=== PATIENT | male | born 1940 | race Caucasian/White ===

== ENCOUNTER → 2017-12-27 | Outpatient (CLI) | payer MEDICARE, BC ==
--- NOTE | 2017-12-27 14:46 | XR ---
EXAMINATION TYPE: XR chest 2V DATE OF EXAM: 12/27/2017 COMPARISON: 01/14/2015 TECHNIQUE: PA and lateral views submitted. HISTORY: Preop FINDINGS: The lungs are clear and there is no pneumothorax, pleural effusion, or focal pneumonia. Partial jay ntration of the right hemidiaphragm has a stable appearance. Hypertrophic and degenerative change of the spine. Arthropathy of the shoulders. No overt failure. Atherosclerotic change aorta. Prominence t he right paratracheal stripe is stable from prior exam could be related the thyroid or ectatic vascul ature. IMPRESSION: 1. No acute process.
== END ==
LOC: RADXRYALE 14:23
PROVIDERS: ATTEND Family Medicine
DX: Z01.818 Encounter for other preprocedural examination (principal)
CPT/HCPCS: 71046

== ENCOUNTER 2019-05-04 13:48 | Emergency (ER) | payer MEDICARE, BC ==
[2019-05-04 13:53] VITALS: RESP 16; TEMP 97.8
[2019-05-04] MEDS ORDERED: SODIUM CHLORIDE 0.9% 500 ML 500 ML IV STA (14:11)
--- NOTE | 2019-05-04 14:21 | ED ---
Weakness HPI - General Chief complaint: Weakness Stated complaint: Dizzy Time Seen by Provider: 05/04/19 13:59 Source: patient, family Mode of arrival: wheelchair Limitations: no limitations - History of Present Illness Initial comments: 78-year-old male patient presents to the emergency department today for evaluation of generalized weakness. Patient states he woke this morning feeling generally run down. States he is also having feelings of lightheadedness. Patient states this occurs mostly when he stands up. Patient was diagnosed with influenza about a week and a half ago. Did complete Tamiflu. States most of his symptoms have improved. States he does still have a cough with white sputum production. States he is occasionally short of breath. Patient states he is also having difficulty with his urine stream. Denies any numbness or tingling to his extremities. Denies any unilateral weakness. Denies headache, blurred vision, or double vision. Denies chest pain. Patient denies any recent rash, fever, abdominal pain, nausea, vomiting, diarrhea, constipation, back pain, or any other complaints. - Related Data Allergies Allergy/AdvReac Type Severity Reaction Status Date / Time shellfish derived [Shellfish] Allergy Rash/Hives Verified 05/04/19 13:51 Review of Systems ROS Statement: Those systems with pertinent positive or pertinent negative responses have been documented in the HPI. ROS Other: All systems not noted in ROS Statement are negative. Past Medical History Past Medical History: COPD, Hyperlipidemia, Hypertension History of Any Multi-Drug Resistant Organisms: None Reported Past Surgical History: Hernia Repair Past Psychological History: No Psychological Hx Reported Smoking Status: Former smoker Past Alcohol Use History: None Reported Past Drug Use History: None Reported General Exam Limitations: no limitations General appearance: alert, in no apparent distress, other (This is a well- developed, well-nourished elderly male patient in no acute distress. Vital signs upon presentation are temperature 97.8F, pulse 74, respirations 16, blood pressure 135/83, pulse ox 98% on room air.) Eye exam: Present: normal appearance, PERRL, EOMI. Absent: scleral icterus, conjunctival injection, nystagmus, periorbital swelling ENT exam: Present: normal exam, normal oropharynx, mucous membranes moist Respiratory exam: Present: normal lung sounds bilaterally. Absent: respiratory distress, wheezes, rales, rhonchi, stridor Cardiovascular Exam: Present: regular rate, normal rhythm, normal heart sounds. Absent: systolic murmur, diastolic murmur, rubs, gallop, clicks GI/Abdominal exam: Present: soft, normal bowel sounds. Absent: distended, tenderness, guarding, rebound, rigid Neurological exam: Present: alert, oriented X3, CN II-XII intact Psychiatric exam: Present: normal affect, normal mood Skin exam: Present: warm, dry, intact, normal color. Absent: rash Course Vital Signs 05/04/19 05/04/19 13:49 15:59 Temperature 97.8 F Pulse Rate 74 80 Respiratory 16 16 Rate Blood Pressure 135/83 121/74 O2 Sat by Pulse 98 100 Oximetry EKG Findings - EKG Comments: EKG Findings:: EKG obtained at 1450 shows normal sinus rhythm with a ventricular rate is 79, AR interval 174, QRS duration 88, QT 384, QTC 440. No evidence of ST elevation or depression. Medical Decision Making - Medical Decision Making 78-year-old male patient presents to the emergency department today for evaluation of lightheadedness and feeling generally rundown. Physical examination is unremarkable. Lungs are clear to auscultation with good air movement. Labs reviewed and are did reveal a bit of dehydration with a BUN of 20. Urinalysis is negative for infection. I did discuss findings and results with the patient. He was given 500 mL of normal saline. He'll be discharged to follow up with his primary care physician for recheck in 1-2 days. They do have an appointment on Tuesday. He is instructed to increase fluids and rest. Return parameters were discussed in detail. He verbalizes understanding and agrees with this plan. - Lab Data Result diagrams: 05/04/19 14:11 05/04/19 14:11 Lab Results 05/04/19 05/04/19 05/04/19 Range/Units 14:11 14:11 14:11 WBC 7.8 (3.8-10.6) k/uL RBC 5.39 (4.30-5.90) m/uL Hgb 15.7 (13.0-17.5) gm/dL Hct 48.6 (39.0-53.0) % MCV 90.1 (80.0-100.0) fL MCH 29.1 (25.0-35.0) pg MCHC 32.2 (31.0-37.0) g/dL RDW 12.9 (11.5-15.5) % Plt Count 181 (150-450) k/uL Neutrophils % 77 % Lymphocytes % 14 % Monocytes % 4 % Eosinophils % 2 % Basophils % 1 % Neutrophils # 6.0 (1.3-7.7) k/uL Lymphocytes # 1.1 (1.0-4.8) k/uL Monocytes # 0.3 (0-1.0) k/uL Eosinophils # 0.2 (0-0.7) k/uL Basophils # 0.1 (0-0.2) k/uL PT (9.0-12.0) sec INR (<1.2) APTT (22.0-30.0) sec Sodium 138 (137-145) mmol/L Potassium 4.4 (3.5-5.1) mmol/L Chloride 105 (98-107) mmol/L Carbon Dioxide 26 (22-30) mmol/L Anion Gap 7 mmol/L BUN 22 H (9-20) mg/dL Creatinine 0.80 (0.66-1.25) mg/dL Est GFR (CKD-EPI)AfAm >90 (>60 ml/min/1.73 sqM) Est GFR (CKD-EPI)NonAf 87 (>60 ml/min/1.73 sqM) Glucose 97 (74-99) mg/dL Plasma Lactic Acid Jack 0.9 (0.7-2.0) mmol/L Calcium 9.1 (8.4-10.2) mg/dL Magnesium 1.8 (1.6-2.3) mg/dL Total Bilirubin 0.7 (0.2-1.3) mg/dL AST 24 (17-59) U/L ALT 23 (4-49) U/L Alkaline Phosphatase 48 (38-126) U/L Troponin I (0.000-0.034) ng/mL Total Protein 6.7 (6.3-8.2) g/dL Albumin 4.1 (3.5-5.0) g/dL Urine Color Urine Appearance (Clear) Urine pH (5.0-8.0) Ur Specific [place] (1.001-1.035) Urine Protein (Negative) Urine Glucose (UA) (Negative) Urine Ketones (Negative) Urine Blood (Negative) Urine Nitrite (Negative) Urine Bilirubin (Negative) Urine Urobilinogen (<2.0) mg/dL Ur Leukocyte Esterase (Negative) 05/04/19 05/04/19 05/04/19 Range/Units 14:11 14:11 14:51 WBC (3.8-10.6) k/uL RBC (4.30-5.90) m/uL Hgb (13.0-17.5) gm/dL Hct (39.0-53.0) % MCV (80.0-100.0) fL MCH (25.0-35.0) pg MCHC (31.0-37.0) g/dL RDW (11.5-15.5) % Plt Count (150-450) k/uL Neutrophils % % Lymphocytes % % Monocytes % % Eosinophils % % Basophils % % Neutrophils # (1.3-7.7) k/uL Lymphocytes # (1.0-4.8) k/uL Monocytes # (0-1.0) k/uL Eosinophils # (0-0.7) k/uL Basophils # (0-0.2) k/uL PT 10.2 (9.0-12.0) sec INR 1.0 (<1.2) APTT 24.6 (22.0-30.0) sec Sodium (137-145) mmol/L Potassium (3.5-5.1) mmol/L Chloride (98-107) mmol/L Carbon Dioxide (22-30) mmol/L Anion Gap mmol/L BUN (9-20) mg/dL Creatinine (0.66-1.25) mg/dL Est GFR (CKD-EPI)AfAm (>60 ml/min/1.73 sqM) Est GFR (CKD-EPI)NonAf (>60 ml/min/1.73 sqM) Glucose (74-99) mg/dL Plasma Lactic Acid Jack (0.7-2.0) mmol/L Calcium (8.4-10.2) mg/dL Magnesium (1.6-2.3) mg/dL Total Bilirubin (0.2-1.3) mg/dL AST (17-59) U/L ALT (4-49) U/L Alkaline Phosphatase (38-126) U/L Troponin I <0.012 (0.000-0.034) ng/mL Total Protein (6.3-8.2) g/dL Albumin (3.5-5.0) g/dL Urine Color Yellow Urine Appearance Clear (Clear) Urine pH 6.5 (5.0-8.0) Ur Specific [place] 1.022 (1.001-1.035) Urine Protein Negative (Negative) Urine Glucose (UA) Negative (Negative) Urine Ketones Negative (Negative) Urine Blood Negative (Negative) Urine Nitrite Negative (Negative) Urine Bilirubin Negative (Negative) Urine Urobilinogen 2.0 (<2.0) mg/dL Ur Leukocyte Esterase Negative (Negative) - Radiology Data Radiology results: report reviewed, image reviewed Two-view x-ray of the chest is obtained. Report was reviewed in its entirety. Impression by Dr. Jacobsen shows no acute cardio pulmonary process. Underlying COPD. Disposition Clinical Impression: Dehydration, Weakness Disposition: HOME SELF-CARE Condition: Good Instructions (If sedation given, give patient instructions): Dehydration (ED), Weakness (ED) Additional Instructions: Increase fluids. Rest. Follow up through primary care physician for recheck in 1-2 days. Return to the emergency department immediately for any new, worsening, or concerning symptoms. Is patient prescribed a controlled substance at d/c from ED?: No Referrals: Randy Iglesias DO [Primary Care Provider] - 1-2 days Time of Disposition: 15:39
[2019-05-04 14:34] LABS: Basophils # (A) 0.1 k/uL (0-0.2); Basophils % (A) 1 %; Eosinophils # (A) 0.2 k/uL (0-0.7); Eosinophils % (A) 2 %; HCT 48.6 % (39.0-53.0); HGB 15.7 gm/dL (13.0-17.5); Lymphocytes # (A) 1.1 k/uL (1.0-4.8); Lymphocytes % (A) 14 %; MCH 29.1 pg (25.0-35.0); MCHC 32.2 g/dL (31.0-37.0); MCV 90.1 fL (80.0-100.0); Mean Platelet Volume 8.9; Monocytes # (A) 0.3 k/uL (0-1.0); Monocytes % (A) 4 %; Neutrophils % (A) 77 %; Platelet Count 181 k/uL (150-450); RBC 5.39 m/uL (4.30-5.90); RDW 12.9 % (11.5-15.5); WBC 7.8 k/uL (3.8-10.6)
[2019-05-04 14:42] LABS: ALT 23 U/L (4-49); AST 24 U/L (17-59); African American GFR (CKD) >90 (>60 ml/min/1.73 sqM); Albumin 4.1 g/dL (3.5-5.0); Alkaline Phosphatase 48 U/L (38-126); Anion Gap 7 mmol/L; Blood Urea Nitrogen 22 mg/dL (9-20); Calcium 9.1 mg/dL (8.4-10.2); Carbon Dioxide 26 mmol/L (22-30); Chloride 105 mmol/L (98-107); Glucose 97 mg/dL (74-99); Magnesium 1.8 mg/dL (1.6-2.3); Non-African American GFR(CKD) 87 (>60 ml/min/1.73 sqM); Potassium 4.4 mmol/L (3.5-5.1); Sodium 138 mmol/L (137-145); Total Bilirubin 0.7 mg/dL (0.2-1.3); Total Protein 6.7 g/dL (6.3-8.2)
[2019-05-04 14:44] LABS: Partial Thromboplastin Time 24.6 sec (22.0-30.0); Prothrombin Time 10.2 sec (9.0-12.0)
[2019-05-04 15:10] LABS: Appearance,Urine Clear (Clear); Bilirubin,Urine Negative (Negative); Blood,Urine Negative (Negative); Color,Urine Yellow; Glucose,Urine (UA) Negative (Negative); Ketones,Urine Negative (Negative); Leukocyte Esterase,Urine Negative (Negative); Nitrite,Urine Negative (Negative); PH, Urine 6.5 (5.0-8.0); Protein,Urine Negative (Negative); Specific Gravity,Urine 1.022 (1.001-1.035)
--- NOTE | 2019-05-04 15:10 | XR ---
EXAMINATION TYPE: XR chest 2V DATE OF EXAM: 05/04/2019 COMPARISON: 01/06/2018 HISTORY: Weakness TECHNIQUE: Frontal and lateral views of the chest are obtained. FINDINGS: There is no focal air space opacity, pleural effusion, or pneumothorax seen. Pulmonary hyp erinflation is present with flattening of the diaphragms on lateral view representing underlying COPD . The cardiac silhouette size is enlarged. The osseous structures are intact. Diffuse osseous demin eralization is seen as well as mild to moderate degenerative change of the spine. IMPRESSION: No acute cardiopulmonary process. Underlying COPD.
[2019-05-04 16:00] VITALS: BP 121/74; PULSE 80
== END 2019-05-04 15:58 | disposition home or self-care (01) ==
LOC: EC 13:48
DX: E86.0 Dehydration (principal); I10 Essential (primary) hypertension; Z87.891 Personal history of nicotine dependence; Z91.013 Allergy to seafood
CPT/HCPCS: 36415; 71046; 80053; 81003; 83605; 83735; 84484; 85025; 85610; 85730; 93005; 96360; 99285

== ENCOUNTER → 2022-09-28 | Outpatient (CLI) | payer MEDICARE, BC ==
--- NOTE | 2022-09-28 11:02 | XR ---
EXAMINATION TYPE: XR lumbosacral spine min 4V DATE OF EXAM: 09/28/2022 9:27 AM INDICATION: Patient age:Male; 82 years old; Reason for study: M542,[id number] CERVICALGIA,DDD; COMPARISON: 08/21/2013. TECHNIQUE: Frontal, lateral and coned in L5-S1 lateral views of the spine. FINDINGS: No evidence of any acute osseous pathology. Mild wedging of the T11-T12 vertebral bodies. T here is mild scoliotic curvature of the vertebral bodies. Mild scattered disc space narrowing worse i n the lower thoracic spine. Multilevel marginal osteophyte formation throughout the visualized spine. There is facet joint arthropathy throughout the spine. Scattered at least mild neural foraminal sten osis worse at L5-S1. Atherosclerosis of the arterial vasculature. IMPRESSION: 1. No acute fracture. 2. Moderate multilevel disc degeneration.
--- NOTE | 2022-09-28 11:12 | XR ---
EXAMINATION TYPE: XR cervical spine comp DATE OF EXAM: 09/28/2022 9:26 AM INDICATION: Patient age:Male; 82 years old; Reason for study: M542,[id number] CERVICALGIA,DDD; COMPARISON: None TECHNIQUE: The cervical spine was imaged in frontal, lateral, odontoid and bilateral oblique. FINDINGS: The osseous structures show increased kyphotic alignment without evidence of an acute fracture. There are osteophytes noted throughout the cervical spine on the anterior and lateral aspects of the verte bral bodies. The intervertebral disk spaces are narrowed at multiple levels. Pedicles are intact. So ft tissues are within normal limits. The odontoid appears intact. IMPRESSION: 1. No fracture or dislocation. 2. Moderate to severe degenerative disc disease changes of the cervical spine.
== END | disposition home or self-care (01) ==
LOC: RADXRYALE 09:02
PROVIDERS: ATTEND Family Medicine
DX: M51.36 Other intervertebral disc degeneration, lumbar region (principal); M50.30 Other cervical disc degeneration, unspecified cervical region
CPT/HCPCS: 72050; 72110

== ENCOUNTER → 2023-03-29 | Outpatient (CLI) | payer MEDICARE, BC ==
--- NOTE | 2023-03-29 13:41 | XR ---
EXAMINATION TYPE: XR chest 2V DATE OF EXAM: 03/29/2023 COMPARISON: 05/04/2019 HISTORY: 82-year-old male [id number] SOB, EDEMA TECHNIQUE: Frontal and lateral views FINDINGS: Patient's chin is down obscuring the medial apices. Heart borderline enlarged. Strandy atelectasis in the lower lungs. Mild hyperinflation. No consolidation or pleural effusion. IMPRESSION: Borderline heart size. Possible underlying COPD. No definite acute process.
== END | disposition home or self-care (01) ==
LOC: RADXRYALE 08:42
PROVIDERS: ATTEND Family Medicine
DX: R06.02 Shortness of breath (principal); R60.9 Edema, unspecified
CPT/HCPCS: 71046